=== PATIENT | male | born 1970 | race Caucasian/White ===

== ENCOUNTER 2018-12-15 16:09 | Emergency (ER) | payer BC ==
[2018-12-15] MEDS ORDERED: ASPIRIN 81 MG CHEWABLE TABLET ONE (17:06)
[2018-12-15 17:26] LABS: Absolute Lymphocytes (CBC) 3.5 K/uL (0.7-4.9); Basophils % 0.6 % (0-1.3); Hematocrit 42.8 % (39.6-49.0); Lymphocytes % 41.9 % (15.3-44.8); MPV 9.5 fL (7.6-11.3); RBC Red Blood Cell Count 4.75 M/uL (4.33-5.43)
[2018-12-15 17:33] LABS: Protime INR 0.88
[2018-12-15 17:50] LABS: ALT/SGPT 35 U/L (12-78); AST/SGOT 17 U/L (15-37); Albumin 3.4 g/dL (3.4-5.0); Alkaline Phosphatase 46 U/L (45-117); BUN Blood Urea Nitrogen 14 mg/dL (7-18); Bicarbonate 30 mmol/L (21-32); Bilirubin Direct < 0.1 mg/dL (0-0.2); Bilirubin Total 0.2 mg/dL (0.2-1.0); Glucose Level 91 mg/dL (74-106); Magnesium 1.9 mg/dL (1.8-2.4); Potassium 3.9 mmol/L (3.5-5.1); Protein, Total 6.2 g/dL (6.4-8.2); Sodium Level 141 mmol/L (136-145); Troponin (Emerg Dept Use Only) < 0.02 ng/mL (0.0-0.045)
[2018-12-15 18:12] LABS: NT PRO-BNP < 5 pg/mL (<125)
--- NOTE | 2018-12-15 18:42 | RAD REPORT ---
EXAM DESCRIPTION: RAD - Chest Single View - 12/15/2018 6:31 pm CLINICAL HISTORY: CHEST PAIN Chest pain. COMPARISON: <Comparisons> FINDINGS: Portable technique limits examination quality. The lungs are grossly clear. The heart is upper limit normal in size. No displaced fractures. IMPRESSION: No acute intrathoracic process suspected.
--- NOTE | 2018-12-15 19:43 | EDPHYS ---
Physician Documentation [facility] Name: Poli Obando Age: 48 yrs Sex: Male : 1970 Arrival Date: 12/15/2018 Time: 16:10 Bed 7 Private MD: Gaivno Marie T ED Physician Jan Lucio HPI: 12/15 16:23 This 48 yrs old Male presents to ER via Unassigned with complaints of Chest cp Pain. 16:25 The patient or guardian reports chest pain that is located primarily in the anterior cp chest wall, left. 16:25 Onset: 1 week(s) ago. The pain radiates to left neck, left back. cp 16:25 Associated signs and symptoms: Pertinent positives: dizziness, nausea, Pertinent cp negatives: abdominal pain, cough, diaphoresis, headache, lower extremity pain, lower extremity swelling, shortness of breath, syncope. 16:25 The chest pain is described as a pressure. Duration: The patient or guardian reports cp multiple episodes, that are intermittent, with no pattern. Modifying factors: The symptoms are alleviated by nothing. the symptoms are aggravated by nothing. Severity of pain: in the emergency department the pain is a 3 / 10. The patient has been recently seen by a physician: the patient's primary care provider, with similar presenting complaints, and was sent to the [facility] Emergency Department for further evaluation. Historical: - Allergies: 16:32 Codeine; iw - Home Meds: 16:32 Linzess oral oral [Active]; Ambien 10 mg Oral tab 1 tab once daily [Active]; iw - PMHx: 16:32 None; iw - PSHx: 16:32 Cholecystectomy; iw - Immunization history:: Adult Immunizations not up to date. - Social history:: Smoking status: Patient uses vape pen. - Ebola Screening: : Patient negative for fever greater than or equal to 101.5 degrees Fahrenheit, and additional compatible Ebola Virus Disease symptoms Patient denies exposure to infectious person Patient denies travel to an Ebola-affected area in the 21 days before illness onset No symptoms or risks identified at this time. ROS: 16:30 Constitutional: Negative for body aches, chills, fever, poor PO intake. cp 16:30 Eyes: Negative for injury, pain, redness, and discharge. cp 16:30 ENT: Negative for drainage from ear(s), ear pain, sore throat, difficulty swallowing, difficulty handling secretions. 16:30 Cardiovascular: Positive for chest pain, Negative for edema, palpitations. 16:30 Respiratory: Negative for cough, shortness of breath, wheezing. 16:30 Abdomen/GI: Negative for abdominal pain, nausea, vomiting, and diarrhea. 16:30 Back: Positive for pain at rest, pain with movement, of the left trapezius and left scapular area, Negative for injury or acute deformity, decreased range of motion. 16:30 Skin: Negative for cellulitis, rash. 16:30 Neuro: Negative for altered mental status, dizziness, headache, syncope, weakness. 16:30 All other systems are negative. Exam: 16:35 Constitutional: The patient appears in no acute distress, alert, awake, comfortable, cp non-diaphoretic, well developed, well nourished. 16:35 Head/Face: Normocephalic, atraumatic. cp 16:35 Eyes: Periorbital structures: appear normal, Conjunctiva: normal, no exudate, no injection, Sclera: no appreciated abnormality, Lids and lashes: appear normal, bilaterally. 16:35 ENT: External ear(s): are unremarkable, Nose: is normal, Mouth: Lips: moist, Oral mucosa: pink and intact, moist, Posterior pharynx: is normal, airway is patent, no erythema, no exudate. 16:35 Neck: C-spine: vertebral tenderness, is not appreciated, crepitus, is not appreciated, ROM/movement: is normal, is supple, no range of motions limitations, no nuchal rigidity. 16:35 Chest/axilla: Inspection: normal, Palpation: is normal, no crepitus, no tenderness. 16:35 Cardiovascular: Rate: normal, Rhythm: regular, Pulses: Pulses are 2+ in right radial artery and left radial artery. Heart sounds: murmur, not appreciated, Edema: is not appreciated, JVD: is not appreciated. 16:35 Respiratory: the patient does not display signs of respiratory distress, Respirations: normal, no use of accessory muscles, no retractions, no splinting, no tachypnea, labored breathing, is not present, Breath sounds: are clear throughout, no decreased breath sounds, no stridor, no wheezing. 16:35 Abdomen/GI: Inspection: abdomen appears normal, Palpation: abdomen is soft and non-tender, in all quadrants. 16:35 Back: pain, that is mild, of the left trapezius and left scapular area, ROM is normal, vertebral tenderness, is not appreciated. 16:35 Skin: no rash present. 16:35 Neuro: Orientation: to person, place \T\ time. Mentation: is normal, Cerebellar function: is grossly normal, Motor: moves all fours, strength is normal, Sensation: is normal. 16:43 ECG was reviewed by the Attending Physician. cp Vital Signs: 16:32 BP 151 / 97; Pulse 95; Resp 16 S; Temp 98.2; Pulse Ox 100% on R/A; Weight 90.72 kg; iw Height 6 ft. 0 in. (182.88 cm); Pain 4/10; 17:30 BP 140 / 87; Pulse 88; Resp 16; Pulse Ox 99% on R/A; sg 18:52 BP 142 / 88; Pulse 87; Resp 17; Pulse Ox 99% on R/A; sg 16:32 Body Mass Index 27.12 (90.72 kg, 182.88 cm) iw MDM: 16:22 Patient medically screened. cp 19:41 The patient was given aspirin in the Emergency Department. cp 19:41 Differential diagnosis: abnormal EKG, acute myocardial infarction, acute pericarditis, cp chest wall pain, pleurisy, pneumonia, pneumothorax, pulmonary embolus, stable angina, unstable angina. Data reviewed: vital signs, nurses notes, lab test result(s), EKG, radiologic studies, plain films. Refusal of service: The patient/guardian displays adequate decision making capability and despite a detailed discussion of alternatives, benefits, risks, and consequences refuses: repeat EKG and troponin level. Special discussion: Based on the patient's history, exam, and Dx evaluation, there is no indication for emergent intervention or inpatient Tx. It is understood by the patient/guardian that if the Sx's persist or worsen they need to return immediately for re-evaluation. 12/15 16: Order name: Basic Metabolic Panel; Complete Time: 18:21 12/15 16: Order name: CBC with Diff; Complete Time: 18:09 12/15 18:09 Interpretation: Reviewed. 10/24 16:23 Order name: LFT's; Complete Time: 18:21 cp 12/15 16:23 Order name: Magnesium; Complete Time: 18:21 cp 12/15 16:23 Order name: NT PRO-BNP; Complete Time: 18:21 cp 12/15 16:23 Order name: PT-INR; Complete Time: 18:09 cp 12/15 16:23 Order name: Troponin (emerg Dept Use Only); Complete Time: 18:21 cp 12/15 16:23 Order name: XRAY Chest (1 view) cp 12/15 16:23 Order name: EKG; Complete Time: 16:24 cp 12/15 16:23 Order name: Cardiac monitoring; Complete Time: 17:35 cp 12/15 16:23 Order name: EKG - Nurse/Tech; Complete Time: 17:35 cp 12/15 16:23 Order name: IV Saline Lock; Complete Time: 17:35 cp 12/15 16:23 Order name: Labs collected and sent; Complete Time: 17:35 cp 12/15 16:23 Order name: O2 Per Protocol; Complete Time: 17:35 cp 12/15 16:23 Order name: O2 Sat Monitoring; Complete Time: 17:35 cp 12/15 17:04 Order name: Labs - recollect needed; Complete Time: 17:35 em1 EC:43 Rate is 81 beats/min. Rhythm is regular. HI interval is normal. QRS interval is normal. cp QT interval is normal. Interpreted by me. Reviewed by me. Administered Medications: 16:50 Drug: Aspirin Chewable Tablet 324 mg Route: PO; sg 18:50 Follow up: Response: No adverse reaction sg Disposition: 12/16 06:47 Co-signature as Attending Physician, Jan Lucio MD I agree with the assessment and kdr plan of care. Disposition: 12/15/18 19:42 Discharged to Home. Impression: Chest pain, unspecified. - Condition is Stable. - Discharge Instructions: Nonspecific Chest Pain, Exercise Stress Electrocardiogram, Aspirin and Your Heart. - Prescriptions for Ibuprofen 800 mg Oral Tablet - take 1 tablet by ORAL route every 8 hours As needed take with food; 30 tablet. - Medication Reconciliation Form, Thank You Letter, Antibiotic Education, Prescription Opioid Use form. - Follow up: Nathan Douglas MD; When: 2 - 3 days; Reason: Recheck today's complaints. - Problem is new. - Symptoms have improved. Signatures: Dispatcher [employer] EDMS Kash Dupont, RN RN sg Jan Lucio MD MD kdr Williams, Irene, RN RN Peña Roberts1 Kenyetta Graf RN RN ak1 Jaxon Brice PA PA cp Corrections: (The following items were deleted from the chart) 12/15 19:56 19:42 12/15/2018 19:42 Discharged to Home. Impression: Chest pain, unspecified. ak1 Condition is Stable. Forms are Medication Reconciliation Form, Thank You Letter, Antibiotic Education, Prescription Opioid Use. Follow up: Nathan Douglas; When: 2 - 3 days; Reason: Recheck today's complaints. Problem is new. Symptoms have improved. cp
--- NOTE | 2018-12-15 19:43 | ER ---
Nurse's Notes [facility] Name: Poli Obando Age: 48 yrs Sex: Male : 1970 Arrival Date: 12/15/2018 Time: 16:10 Bed 7 Private MD: Gavino Marie T Diagnosis: Chest pain, unspecified Presentation: 12/15 16:26 Presenting complaint: Patient states: intermittent left sided chest pain X 1 week, went iw to Dr. Marie's office today and was sent here, pain radiates to left shoulder and neck also has been nauseated and dizzy, pain described as pressure. Transition of care: patient was not received from another setting of care. Onset of symptoms was December 08, 2018. Risk Assessment: Do you want to hurt yourself or someone else? Patient reports no desire to harm self or others. Initial Sepsis Screen: Does the patient meet any 2 criteria? No. Patient's initial sepsis screen is negative. Does the patient have a suspected source of infection? No. Patient's initial sepsis screen is negative. Care prior to arrival: None. 16:26 Method Of Arrival: Wheelchair iw 16:26 Acuity: CARLOTA 3 iw Historical: - Allergies: 16:32 Codeine; iw - Home Meds: 16:32 Linzess oral oral [Active]; Ambien 10 mg Oral tab 1 tab once daily [Active]; iw - PMHx: 16:32 None; iw - PSHx: 16:32 Cholecystectomy; iw - Immunization history:: Adult Immunizations not up to date. - Social history:: Smoking status: Patient uses vape pen. - Ebola Screening: : Patient negative for fever greater than or equal to 101.5 degrees Fahrenheit, and additional compatible Ebola Virus Disease symptoms Patient denies exposure to infectious person Patient denies travel to an Ebola-affected area in the 21 days before illness onset No symptoms or risks identified at this time. Screenin:25 Abuse screen: Denies threats or abuse. Denies injuries from another. Nutritional sg screening: No deficits noted. Tuberculosis screening: No symptoms or risk factors identified. Never had TB. Fall Risk None identified. Assessment: 16:25 General: Appears in no apparent distress. well groomed, well developed, well nourished, sg Behavior is calm, cooperative, appropriate for age. Pain: Complains of pain in chest Quality of pain is described as aching, sharp. Neuro: Level of Consciousness is awake, alert, obeys commands, Oriented to person, place, time, Planning Official are equal bilaterally Moves all extremities. Speech is normal, Facial symmetry appears normal. Cardiovascular: Patient's skin is warm and dry. Chest pain is denied. Respiratory: Airway is patent Respiratory effort is even, unlabored, Respiratory pattern is regular, symmetrical, Breath sounds are clear. GI: Abdomen is flat, non-distended, Reports tolerance of fluids, tolerance of food. : No signs and/or symptoms were reported regarding the genitourinary system. EENT: No signs and/or symptoms were reported regarding the EENT system. Derm: Skin is pink, warm \T\ dry. Musculoskeletal: Circulation, motion, and sensation intact. Range of motion: intact in all extremities. 19:56 Pain: Pain began. ak1 Vital Signs: 16:32 BP 151 / 97; Pulse 95; Resp 16 S; Temp 98.2; Pulse Ox 100% on R/A; Weight 90.72 kg; iw Height 6 ft. 0 in. (182.88 cm); Pain 4/10; 17:30 BP 140 / 87; Pulse 88; Resp 16; Pulse Ox 99% on R/A; sg 18:52 BP 142 / 88; Pulse 87; Resp 17; Pulse Ox 99% on R/A; sg 16:32 Body Mass Index 27.12 (90.72 kg, 182.88 cm) iw ED Course: 16:10 Patient arrived in ED. as 16:10 Gavino Marie MD is Private Physician. as 16:14 Jaxon Brice [facility] is [facility]. cp 16:14 Jan Lucio MD is Attending Physician. cp 16:31 Triage completed. iw 16:32 Arm band placed on. iw 16:36 EKG done, by metallurgical technician. reviewed by Jaxon ESPINO. sm3 17:05 Kash Dupont, RN is Primary Nurse. sg 17:10 Lab(s) recollected, by me, sent to lab. Inserted saline lock: 22 gauge in left sg antecubital area, using aseptic technique. Blood collected. 18:33 XRAY Chest (1 view) In Process Unspecified. EDMS 18:50 Patient has correct armband on for positive identification. Bed in low position. Call sg light in reach. Side rails up X2. Pulse ox on. NIBP on. 19:42 Nathan Douglas MD is Referral Physician. cp 19:54 Kenyetta Grfa, RN is Primary Nurse. ak1 19:55 No provider procedures requiring assistance completed. Patient did not have IV access ak1 during this emergency room visit. Patient maintains SpO2 saturation greater than 95% on room air. Administered Medications: 16:50 Drug: Aspirin Chewable Tablet 324 mg Route: PO; sg 18:50 Follow up: Response: No adverse reaction sg Outcome: 19:42 Discharge ordered by MD. cp 19:55 Discharged to home ambulatory. ak1 19:55 Condition: good 19:55 Discharge instructions given to patient, Instructed on discharge instructions, follow up and referral plans. no drinking with medication, no driving heavy equipment, medication usage, Demonstrated understanding of instructions, Prescriptions given X 1. 19:56 Patient left the ED. ak1 Signatures: Dispatcher [employer] EDMS Kash Dupont RN RN sg Martinez, Amelia as Williams, Irene, RN RN Kenyetta Graf RN RN ak1 Jaxon Brice, SRINIVAS PA Marci Tran 3
[2018-12-15 21:28] VITALS: TEMP 98.2
[2018-12-15 21:29] VITALS: O2SAT 99
[2018-12-15 21:31] VITALS: BP 142/88
--- NOTE | 2018-12-16 07:24 | EKG ---
Test Date: 2018-12-15 Test Time: 16:32:34 Checker Cashier: RENEE MEASUREMENT RESULTS: Intervals: Rate: 81 WY: 164 QRSD: 82 QT: 358 QTc: 415 Rogers: P: 48 WY: 164 QRS: 18 T: 26 INTERPRETIVE STATEMENTS: Normal sinus rhythm Cannot rule out Anterior infarct, age undetermined Abnormal ECG Compared to ECG 07/30/2015 09:05:41 No significant changes Electronically Signed On 12-16-18 07:22:07 CDT by Nikunj Stone
== END 2018-12-15 19:56 | disposition home or self-care (01) ==
LOC: ER 16:09
DX: R07.9 Chest pain, unspecified (principal); F17.290 Nicotine dependence, other tobacco product, uncomplicated; Z88.5 Allergy status to narcotic agent
CPT/HCPCS: 36415; 71045; 80048; 80076; 83735; 83880; 84484; 85025; 85610; 93005; 99284

== ENCOUNTER 2020-12-14 21:45 | Emergency (ER) | payer BC ==
--- NOTE | 2020-12-14 23:11 | ER ---
Nurse's Notes [facility] Name: Poli Obando Age: 50 yrs Sex: Male : 1970 Arrival Date: 12/14/2020 Time: 21:49 Bed 14 Private MD: Diagnosis: Priapism, spontaneously resolved Presentation: 12/14 22:10 Chief complaint: Patient states: Erection for 7 hours. Coronavirus screen: Vaccine fu status: Patient reports receiving the 1st dose of the Covid vaccine. Kraig and Kraig. Ebola Screen: No symptoms or risks identified at this time. Initial Sepsis Screen: Does the patient meet any 2 criteria? No. Patient's initial sepsis screen is negative. Does the patient have a suspected source of infection? No. Patient's initial sepsis screen is negative. Risk Assessment: Do you want to hurt yourself or someone else? Patient reports no desire to harm self or others. Onset of symptoms was December 14, 2020 at 15:00. 22:10 Method Of Arrival: Ambulatory fu 22:10 Acuity: CARLOTA 3 fu Triage Assessment: 22:21 General: Appears in no apparent distress. Behavior is calm, cooperative, appropriate fu for age. Pain: Complains of pain in penis Pain does not radiate. Pain currently is 2 out of 10 on a pain scale. Pain began 1500H today. EENT: No signs and/or symptoms were reported regarding the EENT system. Neuro: Level of Consciousness is awake, alert, obeys commands, Oriented to person, place, time, situation, Machine Bander And Cellophaner Helper are equal bilaterally Moves all extremities. Gait is steady, Speech is normal, Facial symmetry appears normal. Historical: - Allergies: 22:19 Codeine; fu - Home Meds: 22:19 Ambien 10 mg Oral tab 1 tab once daily [Active]; Linzess Oral [Active]; fu - PMHx: 22:44 Kidney stone; fu 22:46 enlarged prostate; fu - PSHx: 22:46 gallbladder removed; fu - Immunization history:: Client reports receiving the Kraig \T\ Kraig single-dose vaccine. - Social history:: Smoking status: Patient reports the use of cigarette tobacco products, smokes one pack cigarettes per day. Screenin:25 Abuse screen: Denies threats or abuse. Nutritional screening: No deficits noted. fu Tuberculosis screening: No symptoms or risk factors identified. Fall Risk None identified. Assessment: 22:22 General: Appears in no apparent distress. Behavior is calm, cooperative, appropriate fu for age, Denies fever, feeling ill, fatigue, chills. Pain: Complains of pain in penis Pain does not radiate. Pain currently is 2 out of 10 on a pain scale. Pain began 1500h today. Neuro: Level of Consciousness is awake, alert, obeys commands, Oriented to person, place, time, situation, Machine Bander And Cellophaner Helper are equal bilaterally Moves all extremities. Gait is steady, Speech is normal, Facial symmetry appears normal. Respiratory: Respiratory effort is even, unlabored, Respiratory pattern is regular. : Reports pain penis due to prolong erection. EENT: No signs and/or symptoms were reported regarding the EENT system. Derm: Skin is intact, Skin is dry, Skin is pink, warm \T\ dry. 22:27 Reassessment: Patient stated pain is going down, ice pack applied to the area. fu 22:51 Reassessment: Patient appears in no apparent distress at this time. Patient and/or fu family updated on plan of care and expected duration. Pain level reassessed. Provider notified of patient's BP. 23:02 Reassessment: Patient states feeling better. Patient voided in the restroom. fu Vital Signs: 22:10 BP 151 / 108; Pulse 104; Resp 18; Temp 98(O); Pulse Ox 100% on R/A; Pain 2/10; fu 22:31 BP 162 / 104; Pulse 92; Resp 16; Pulse Ox 93% on R/A; Pain 2/10; fu ED Course: 21:49 Patient arrived in ED. 21:53 Kendell Bueno MD is Attending Physician. [facility] 21:54 Johnathan Kaur, DAYSI is Primary Nurse. fu 22:25 Patient has correct armband on for positive identification. Placed in gown. Bed in low fu position. Side rails up X 1. Pulse ox on. NIBP on. 22:25 Arm band placed on right wrist. fu 22:26 No provider procedures requiring assistance completed. fu 23:04 Patient did not have IV access during this emergency room visit. fu 23:10 Jeronimo Lewis MD is Referral Physician. [facility] Administered Medications: No medications were administered Outcome: 23:11 Discharge ordered by MD. broussard 23:18 Discharged to home ambulatory. fu 23:18 Condition: good 23:18 Discharge instructions given to patient, Instructed on discharge instructions, follow up and referral plans. Demonstrated understanding of instructions, follow-up care, Prescriptions given X 0 23:19 Patient left the ED. fu Signatures: Johnathan Kaur, RN RN Kendell Vitale MD MD 7 Patricia Beltran Corrections: (The following items were deleted from the chart) : 22:19 Triage completed. fu fu : 22:59 Johnathan Kaur, RN is Primary Nurse. fu fu
--- NOTE | 2020-12-14 23:12 | EDPHYS ---
Physician Documentation [facility] Name: Poli Obando Age: 50 yrs Sex: Male : 1970 Arrival Date: 12/14/2020 Time: 21:49 Bed 14 Private MD: MAICO Physician Kendell Bueno HPI: 12/14 22:10 This 50 yrs old Male presents to ER via Ambulatory with complaints of Penile mh7 Problem. 22:10 The patient presents with Prolonged penile erection. Onset: The symptoms/episode mh7 began/occurred 7 hour(s) ago. Modifying factors: The symptoms are alleviated by nothing, the symptoms are aggravated by nothing. Associated signs and symptoms: Pertinent negatives: abdominal pain, constipation, diarrhea, dysuria, fever, hematuria, nausea, vomiting. Severity of symptoms: At their worst the symptoms were moderate, earlier today, in the emergency department the symptoms have resolved, and did so while in waiting room. Patient states that he took Viagra today and also injected Trimix into his penis. He states that he had a prolonged erection lasting approximately 7 hours. He had some penile pain. He denies any testicular pain or swelling. Denies any fever, abdominal pain, nausea, vomiting, dysuria. He states that erection has resolved while in the waiting room. He denies any pain or other complaints at this time.. Historical: - Allergies: 22:19 Codeine; fu - Home Meds: 22:19 Ambien 10 mg Oral tab 1 tab once daily [Active]; Linzess Oral [Active]; fu - PMHx: 22:44 Kidney stone; fu 22:46 enlarged prostate; fu - PSHx: 22:46 gallbladder removed; fu - Immunization history:: Client reports receiving the Kraig \T\ Kraig single-dose vaccine. - Social history:: Smoking status: Patient reports the use of cigarette tobacco products, smokes one pack cigarettes per day. ROS: 22:10 Constitutional: Negative for fever, chills, and weight loss, Eyes: Negative for injury, mh7 pain, redness, and discharge, ENT: Negative for injury, pain, and discharge, Neck: Negative for injury, pain, and swelling, Cardiovascular: Negative for chest pain, palpitations, and edema, Respiratory: Negative for shortness of breath, cough, wheezing, and pleuritic chest pain, Abdomen/GI: Negative for abdominal pain, nausea, vomiting, diarrhea, and constipation, Back: Negative for injury and pain, MS/Extremity: Negative for injury and deformity, Skin: Negative for injury, rash, and discoloration, Neuro: Negative for headache, weakness, numbness, tingling, and seizure, Psych: Negative for depression, anxiety, suicide ideation, homicidal ideation, and hallucinations, Allergy/Immunology: Negative for hives, rash, and allergies, Endocrine: Negative for neck swelling, polydipsia, polyuria, polyphagia, and marked weight changes, Hematologic/Lymphatic: Negative for swollen nodes, abnormal bleeding, and unusual bruising. Exam: 22:10 Constitutional: This is a well developed, well nourished patient who is awake, alert, mh7 and in no acute distress. Head/Face: Normocephalic, atraumatic. Eyes: Pupils equal round and reactive to light, extra-ocular motions intact. Lids and lashes normal. Conjunctiva and sclera are non-icteric and not injected. Cornea within normal limits. Periorbital areas with no swelling, redness, or edema. Neck: Trachea midline, no thyromegaly or masses palpated, and no cervical lymphadenopathy. Supple, full range of motion without nuchal rigidity, or vertebral point tenderness. No Meningismus. Chest/axilla: Normal chest wall appearance and motion. Nontender with no deformity. No lesions are appreciated. Cardiovascular: Regular rate and rhythm with a normal S1 and S2. No gallops, murmurs, or rubs. Normal PMI, no JVD. No pulse deficits. Respiratory: Lungs have equal breath sounds bilaterally, clear to auscultation and percussion. No rales, rhonchi or wheezes noted. No increased work of breathing, no retractions or nasal flaring. Abdomen/GI: Soft, non-tender, with normal bowel sounds. No distension or tympany. No guarding or rebound. No evidence of tenderness throughout. Back: No spinal tenderness. No costovertebral tenderness. Full range of motion. 22:10 Skin: Warm, dry with normal turgor. Normal color with no rashes, no lesions, and no evidence of cellulitis. MS/ Extremity: Pulses equal, no cyanosis. Neurovascular intact. Full, normal range of motion. Neuro: Awake and alert, GCS 15, oriented to person, place, time, and situation. Cranial nerves II-XII grossly intact. Motor strength 5/5 in all extremities. Sensory grossly intact. Cerebellar exam normal. Normal gait. Psych: Awake, alert, with orientation to person, place and time. Behavior, mood, and affect are within normal limits. 22:10 : CVA tenderness, is absent, Male external genitalia: normal, no abrasion, no discharge, no erythema, no injury, no swelling, no tenderness, no evidence of ulceration, Circumcised, flaccid penis, Bladder: is normal. Vital Signs: 22:10 BP 151 / 108; Pulse 104; Resp 18; Temp 98(O); Pulse Ox 100% on R/A; Pain 2/10; fu 22:31 BP 162 / 104; Pulse 92; Resp 16; Pulse Ox 93% on R/A; Pain 2/10; fu MDM: 23:08 Differential diagnosis: Priapism, medication adverse reaction, medication interaction. [facility] Data reviewed: vital signs, nurses notes. Data interpreted:. Counseling: I had a detailed discussion with the patient and/or guardian regarding: the historical points, exam findings, and any diagnostic results supporting the discharge/admit diagnosis, the need for outpatient follow up, a urologist. Response to treatment: the patient's symptoms have resolved after treatment, the patient's blood pressure is in an acceptable range, mental status has returned to baseline, the patient no longer shows bradycardia, the patient is not short of breath, the patient is not tachycardic, the patient's pain is gone, the patient's temperature has normalized. Refusal of service: The patient/guardian displays adequate decision making capability and despite a detailed discussion of alternatives, benefits, risks, and consequences refuses: Medications. ED course: Well-appearing, no acute distress, vital signs stable, no focal neurological deficits. Patient currently remains without erection and request to be discharged from the ED at this time. He will follow up with his doctor but will return to ED if return of symptoms or other concerns.. 23:11 Patient medically screened. [facility] 23:12 Refusal of service: The patient/guardian displays adequate decision making capability [facility] and despite a detailed discussion of alternatives, benefits, risks, and consequences refuses: all lab tests. Administered Medications: No medications were administered Disposition Summary: 12/14/20 23:11 Discharge Ordered Location: Home [facility] Problem: new mh7 Symptoms: have improved mh Condition: Stable mh7 Diagnosis - Priapism, spontaneously resolved mh7 Followup: [facility] - With: Private Physician - When: 1 - 2 days - Reason: Worsening of condition, Recheck today's complaints, Continuance of care, Re-evaluation by your physician Followup: [facility] - With: Jeronimo Lewis MD - When: 1 - 2 days - Reason: Worsening of condition, Recheck today's complaints Discharge Instructions: - Discharge Summary Sheet [facility] - Priapism [facility] Forms: - Medication Reconciliation Form [facility] - Thank You Letter [facility] - Antibiotic Education [facility] - Prescription Opioid Use [facility] Signatures: Johnathan Kaur RN RN fu Holmes, Maurice, MD MD [facility]
[2020-12-14 23:26] VITALS: TEMP 98
[2020-12-14 23:27] VITALS: BP 162/104; O2SAT 93
== END 2020-12-14 23:19 | disposition home or self-care (01) ==
LOC: ER 21:45
DX: N48.30 Priapism, unspecified (principal); Z88.6 Allergy status to analgesic agent; F17.210 Nicotine dependence, cigarettes, uncomplicated
CPT/HCPCS: 99283

== ENCOUNTER 2020-12-24 06:54 | Day surgery (SDC) | payer BC ==
[2020-12-19 13:45] LABS: Absolute Lymphocytes (CBC) 3.4 K/uL (0.7-4.9); Basophils % 0.9 % (0-1.3); Hematocrit 45.1 % (39.6-49.0); Lymphocytes % 39.2 % (15.3-44.8); RBC Red Blood Cell Count 5.19 M/uL (4.33-5.43)
[2020-12-19 13:46] LABS: Potassium 4.2 mmol/L (3.5-5.1)
[2020-12-19 13:50] LABS: Protime INR 0.91
--- NOTE | 2020-12-20 07:46 | EKG ---
Test Date: 2020-12-19 Test Time: 12:11:23 Photo Optics Technician: ELIANA MEASUREMENT RESULTS: Intervals: Rate: 78 NE: 150 QRSD: 72 QT: 348 QTc: 396 Bracey: P: 71 NE: 150 QRS: 33 T: 45 INTERPRETIVE STATEMENTS: Normal sinus rhythm Septal infarct, age undetermined Abnormal ECG Compared to ECG 12/15/2018 16:32:34 No significant changes Electronically Signed On 12-20-20 07:44:17 CDT by Nikunj Stone
[2020-12-24] MEDS: AMPICILLIN SODIUM 2 GM in NA CHLORIDE 0.9% 100 ML IVPB ONE ×2 (07:41→07:45)
[2020-12-24] MEDS: Gentamicin Inj 200 MG in NA CHLORIDE 0.9% 100 ML IVPB ONE ×2 (07:49→08:06)
[2020-12-24] MEDS ORDERED: Ringers Lactate 1,000 ML IV ONE (08:03)
[2020-12-24] MEDS ORDERED: FENTANYL CITR 100 MCG/2 ML ONE ×2 (08:17→09:14)
[2020-12-24] MEDS ORDERED: propofoL 200 MG/20 ML VIAL IV ONE ×2 (08:17→09:16)
[2020-12-24] MEDS ORDERED: LIDOCAINE 1% MPF 5 ML VIAL ONE (08:18)
[2020-12-24] MEDS ORDERED: ROCURONIUM 50 MG/5 ML VIAL IV ONE ×2 (08:18→09:13)
[2020-12-24] MEDS ORDERED: MIDAZOLAM HCL 2 MG/2 ML INJ ONE (08:32)
[2020-12-24] MEDS ORDERED: KETOROLAC 30 MG/ML INJ ONE (08:57)
[2020-12-24] MEDS ORDERED: PHENAZOPYRIDINE 100MG TAB PO ONE ×3 (09:09→10:58)
[2020-12-24] MEDS ORDERED: HYDROCODONE/APAP 5/325 MG TAB PO PRN (09:09)
[2020-12-24] MEDS ORDERED: OPIUM/BELLADONNA SUPPOS (30-16.2 MG) PR ONE ×2 (09:09→10:18)
[2020-12-24] MEDS ORDERED: ONDANSETRON 4 MG/2 ML VIAL ONE (09:10)
[2020-12-24] MEDS ORDERED: GLYCOPYRROLATE 0.2 MG/ML SYR ONE ×2 (09:29→09:30)
[2020-12-24] MEDS ORDERED: NEOSTIGMINE 1 MG/ML -5 ML ONE (09:29)
[2020-12-24] MEDS ORDERED: HYDROCODONE/APAP 5/325 MG TAB PO ONE (10:00)
[2020-12-24 10:13] VITALS: BP 148/92; O2SAT 100
[2020-12-24] MEDS ORDERED: HYDROCODONE/APAP 5/325 MG TAB ONE (10:58)
[2020-12-24 11:09] VITALS: TEMP 97.7
--- NOTE | 2020-12-24 16:21 | OP ---
Surgeon: DIONI YIN Preoperative Diagnoses: 1.Bladder calculi. 2.Benign prostatic hypertrophy with obstruction and lower urinary tract symptoms. Postoperative Diagnoses: 1.Bladder calculi. 2.Benign prostatic hypertrophy with obstruction and lower urinary tract symptoms. Principle Procedures: 1.Cystolitholapaxy using the holmium laser. 2.Bipolar transurethral resection of the prostate. Findings: 1.Bladder calculi approximately 1 cm each and 2 calculi noted within the bladder. 2.BPH with left greater than right lateral lobar hypertrophy and median lobe with mild intravesical projection and elevated median bar. Indication For Procedure: Mr. Overton presented to the Urology Clinic with bothersome urinary sympt oms and underwent evaluation revealing the presence of the bladder calculi and obstructive lower urin akua symptoms due to BPH refractory to medical therapy. He was counseled on the need for surgical man agement of the bladder calculi and given the option to continue medical therapy versus surgical thera py for his prostate recognizing the potential side effect of retrograde ejaculation. He elected to p roceed with surgical therapy accordingly and was counseled about the other risks and side effects ext ensively. This conversation about the side effect of retrograde ejaculation was reviewed again this morning on the day of surgery to confirm his decision given his relative youth. Procedure In Detail: The patient was consented in the preoperative holding area before being transfe rred to operative suite where general anesthesia was induced. He was given ampicillin 2 g and gentam icin 200 mg IV antimicrobial prophylaxis and pneumo boots were provided for DVT prophylaxis. He was placed in the lithotomy position, padded and secured to the table appropriately. His genitalia were prepped using Hibiclens and draped in standard fashion. The case was begun using urethral sounds to dilate the meatus and fossa navicularis to 30-Lithuanian. Then, using the visual obturator and resectosc ope, the scope was used to easily traverse the urethra and into the bladder. Within the bladder, aft er decompressing it off the indwelling urine, 2 bladder calculi were noted each approximately 1 cm in diameter. As a result, I employed the Gabe bridge and a 500 cm laser fiber to quickly dust the stones at a power setting of 1 joule and 20 hertz. Once the stones were both dusted to fragments sma ller than 1 mm, I then utilized an [employer] evacuator to remove the stone fragments from within the blad ad. I then replaced the Gabe bridge with the bipolar resectoscope loop and began resection of t he prostate. Again, taking note of the anatomy which revealed an intravesically projecting median lo be abutting the trigone and lateral lobar hypertrophy with the left side larger than the right, I brigitte ckly resected the median bar and the intravesical projection of the median lobe down to the level of the bladder neck and then continued creation of that trough to near the verumontanum. The verumontan um was left intact. Then noting on the left side significant lateral lobar projection and overhangin g, I began to resect the lateral lobar hypertrophy at the level of the bladder neck and where it exte nded to the apex. Of note, some of this was cystic and appeared to be potentially a site of prior pr ostatic abscess. Once resected to the anterior component, some minimal component of right lateral lo bar intrusion was resected until a nice smooth trough was created taking note to spare some of the ap ical tissue proximal to the verumontanum in order to try to preserve his antegrade ejaculation. I th al Carvalho evacuated all chips from within the bladder and carefully with his bladder decompressed made a search for bleeding. Any and all oozing vessels were carefully fulgurated until no bleeding was n oted with his bladder completely decompressed. I then left the bladder full and removed the resectos cope, replacing it with a 22-Lithuanian 3-way Chun catheter. The returning efflux of fluid was clear an d I irrigated the bladder to remove any residual stone debris or prostatic chips debris. When the ca theter freely irrigated, I then connected it to continuous bladder irrigation with normal saline and the patient was then awakened from general anesthesia after being taken out of the lithotomy position . He was then transferred to a stretcher and then to the recovery room in good condition. Complications: None. Discharge Disposition: He may follow up in the Urology Clinic on Wednesday for catheter removal and voi ding trial or would even be an option given his youth and lack of likely detrusor dysfunctio n postanesthesia. He will be given a prescription for an antimicrobial as well as some pain medicine s and recommended to obtain azo/Pyridium prior to the catheter being removed for the voiding trial on or Wednesday. Subsequent followup should be established for assessment of the pathology and i nterval assessment with me within 3-6 weeks postoperatively. EMELI/CARMINE Voice ID: [id number] Report ID: [id number]
== END 2020-12-24 10:59 | disposition home or self-care (01) ==
LOC: OR 06:54
PROVIDERS: ATTEND Urology
PROC: 0VT08ZZ Resection of Prostate, Via Natural or Artificial Opening Endoscopic (ICD-10-PCS; 2020-12-24)
PROC: 0TCB8ZZ Extirpation of Matter from Bladder, Via Natural or Artificial Opening Endoscopic (ICD-10-PCS; principal; 2020-12-24 07:30)
DX: N21.0 Calculus in bladder (principal); N40.1 Benign prostatic hyperplasia with lower urinary tract symptoms; Z20.822 Contact with and (suspected) exposure to COVID-19
CPT/HCPCS: 93005; 87088; 85025; 87086; 80048; 36415; 85610; 88305; 82360; 52317; 52601; U0002; J2704 ×2; J1580; J2250; J3010 ×2; J2710; J7120; J2405; J0290